=== PATIENT | female | born 1950 | race Caucasian/White ===

== ENCOUNTER 2016-11-13 07:24 | Day surgery (SDC) | payer MEDICARE, OTHER ==
[~2016-11-13] VITALS: Ht 167.6 cm; Wt 73.5 kg
[~2016-11-13 07:24] MED LIST: CELEBREX 100 M100 MG PO
[2016-11-13 08:00] LABS: HEMATOCRIT 42.5 % (36.0-48.0); HEMOGLOBIN 14.3 g/dL (12-16); MCH 30.8 pg (26.0-34.0); MCHC 33.6 g/dL (31.0-37.0); MCV 91.6 fL (80.0-100.0); MEAN PLATELET VOLUME 10.4 fL (7.4-10.4); RBC 4.64 10x6/uL (4.00-5.40); RDW 13.1 % (11.5-14.5); WBC 6.9 10x3/uL (4.8-10.8)
[2016-11-13 09:55] VITALS: BP 145/65; Ht 167.6 cm; Wt 73.5 kg
[2016-11-13] MEDS ORDERED: HYDROCODONE-APA1 TAB PO (12:26)
--- NOTE | 2016-11-13 19:57 | NUR ---
1700 DRESSED. AWAKE & ALERT SITTING UP IN CHAIR. GIVEN D/C INSTRUCTION PACKET INCLUDING: RX NORCO 10/325MG ,MED REC, NERVE BLOCK POST OP INSTRUCTIONS, POST OP INSTRUCTIONS FOR ARTHROSCOPY OF SHOULDER, PENDULUM EXERCISE INSTRUCTIONS, & RTC APPT. PT & VOICED UNDERSTANDING. PT & INFORMED PT NEEDS TO REMOVE SCOPOLAMINE PATCH IN 72HRS. TO PRIVATE CAR PER WHEELCHAIR BY THIS NURSE. HOME WITH MR. NEELY. Marycarmen OROZCO R.N.
--- NOTE | 2016-11-14 16:52 | OP ---
PATIENT NAME: CHANELLE NEELY MEDICAL RECORD: [id number] :49 LOCATION:D[facility] ADMISSION DATE: SURGEON: HUY VARGAS, CHASIDY MALONEY DATE OF OPERATION: 11/13/2016 PREOPERATIVE DIAGNOSES: Rotator cuff tear of the right shoulder with impingement syndrome, acromioclavicular arthritis. POSTOPERATIVE DIAGNOSES: Rotator cuff tear of the right shoulder with impingement syndrome, acromioclavicular arthritis. PROCEDURES: 1. Arthroscopic rotator cuff repair of the right shoulder. 2. Arthroscopic subacromial decompression, acromioplasty and bursectomy. 3. Arthroscopic distal clavicle excision done through separate incision -- 1 cm. SURGEON: Chasidy Son MD. ANESTHESIA: General. INTRAOPERATIVE COMPLICATIONS: None. SUMMARY OF PATHOLOGIC FINDINGS: Consistent with the preoperative diagnosis and MRI. The patient had full thickness rotator cuff tearing along with impingement syndrome and acromioclavicular arthritis. OPERATIVE SUMMARY IN DETAIL: After obtaining the appropriate preoperative orthopedic surgery consents as well as anesthetic consultation, evaluation and clearance, the patient was brought to the operating room and placed on the operating table in supine position. After adequate general laryngeal mask airway was administered, the patient was placed in a left lateral decubitus position. All pressure points were well padded to include down leg peroneal pad as well as axillary roll. She was held firmly to the operating table using the vacuum pack suction system. Right upper extremity and shoulder were then prepped and draped in a routine sterile fashion. The arm was held in the Arthrex traction boom at 30 degrees of forward flexion, 30 degrees of abduction with 10 pounds of traction laterally. Arthroscopy was established in the glenohumeral joint from a posterior portal. Anterior portal was established in the anterior safe interval. Diagnostic arthroscopy did reveal the above findings. Attention was turned to the rotator cuff. Transrotator cuff portal was created and debridement was carried out to remove all the undersurface torn fibers and decorticate a portion of the supraspinatus tendinous footprint. Attention was turned to the subacromial space. [place] tissue ablation system was utilized to denude the undersurface of the acromion of all soft tissue elements and released coracoacromial ligament. A 5-0 barrel jeff was then used to perform acromioplasty at the level of acromioclavicular joint. Through a separate arthroscopic anterior portal, distal clavicle was excised for 1 cm. Attention was then turned to the rotator cuff. A single inverted mattress suture with #2 FiberTape was placed through the rotator cuff and anchored laterally with a 5.5 SwiveLock resulting in good reapproximation of the rotator cuff tear. Having completed this, arthroscopy portals were closed in routine interrupted fashion using 4-0 Prolene. Sterile dressings were applied. The patient was awakened, taken to recovery room in stable condition. All final needle and sponge counts were correct. OPERATIVE REPORT [id number] CHANELLE NEELY TRANSINT:[id number] Voice Confirmation ID: [id number] DOCUMENT ID: [id number] HUY VARGAS, CHASIDY MALONEY at 1652 CC: [id number] DICTATION DATE: 11/13/16 1232 LOCATION WORKER: 11/13/162110 [facility] 11/13/16 [id number] [place] [address]
== END 2016-11-13 17:00 | disposition home or self-care (01) ==
LOC: D.OPS 07:24 → D.PAN 10:15 → D.OPS 11:45 → D.PAN 12:00 → D.OPS 17:00
PROVIDERS: Anesthesiology
DX: M75.121 Complete rotator cuff tear or rupture of right shoulder, not specified as traumatic (principal); M75.41 Impingement syndrome of right shoulder; M13.811 Other specified arthritis, right shoulder

== ENCOUNTER 2017-01-08 10:27 | Day surgery (SDC) | payer MEDICARE, OTHER ==
[~2017-01-08] VITALS: Ht 167.6 cm; Wt 72.6 kg
[~2017-01-08 10:27] MED LIST changes: +HYDROCODONE-APA1 TAB PO
[2017-01-08 11:15] LABS: HEMATOCRIT 40.7 % (36.0-48.0); HEMOGLOBIN 13.4 g/dL (12-16); MCH 30.7 pg (26.0-34.0); MCHC 32.9 g/dL (31.0-37.0); MCV 93.3 fL (80.0-100.0); MEAN PLATELET VOLUME 10.8 fL (7.4-10.4); RBC 4.36 10x6/uL (4.00-5.40); RDW 12.2 % (11.5-14.5); WBC 10.2 10x3/uL (4.8-10.8)
[2017-01-08] MEDS ORDERED: SOMA350 MG PO (11:17)
[2017-01-08] MEDS ORDERED: PERCOCET 7.5/321 TAB PO (11:18)
[2017-01-08] MEDS ORDERED: ATARAX 25 MG TA25 MG PO (11:19)
[2017-01-08 11:20] VITALS: BP 120/65; Ht 167.6 cm; Wt 72.6 kg
[2017-01-08] MEDS ORDERED: ZOFRAN ODT4 MG/UDTAB PO (11:20)
[2017-01-08] MEDS ORDERED: PERCOCET 10/3251 TA1 PO (15:29)
--- NOTE | 2017-01-08 16:40 | NUR ---
DISCHARGE INSTRUCTIONS REVIEWED WITH PATIENT AND SPOUSE, PATIENT DISCHARGED HOME VIA WHEELCHAIR TO PRIVATE VEHICLE WITH SPOUSE
--- NOTE | 2017-01-10 13:29 | OP ---
PATIENT NAME: CHANELLE NEELY MEDICAL RECORD: [id number] :48 LOCATION:D.OPS ADMISSION DATE: SURGEON: CHASIDY SON MD DATE OF OPERATION: 01/08/2017 Orthopedic Surgery Operative Note PREOPERATIVE DIAGNOSIS: Adhesive capsulitis of the right shoulder. POSTOPERATIVE DIAGNOSIS: Adhesive capsulitis of the right shoulder. PROCEDURE: Manipulation under TIVA anesthesia. SURGEON: Chasidy Son MD. ANESTHESIA: TIVA. COMPLICATIONS: None. SUMMARY OF PATHOLOGIC FINDINGS: The patient had very tight adhesive capsulitis that definitely needed manipulation. OPERATIVE SUMMARY IN DETAIL: After obtaining the appropriate preoperative orthopedic surgery consents as well as anesthetic consultation, evaluation and clearance, the patient was brought to the operating room and placed in the operating table in supine position. After adequate TIVA anesthesia was administered, the scapula was stabilized. Manipulation was first carried out in abduction followed by external rotation, internal rotation, flexion, extension and abduction and external rotation again. Good release was achieved. At this point, the patient was awakened and taken back to outpatient in stable condition. TRANSINT:[id number] Voice Confirmation ID: [id number] DOCUMENT ID: [id number] CHASIDY SON MD at 1329 CC: [id number] DICTATION DATE: 01/08/171942 FURNACE ROASTER: 01/09/17 0431 [facility] 01/08/17 [facility] [address] [place] [address]
== END 2017-01-08 16:40 | disposition home or self-care (01) ==
LOC: D.OPS 10:27 → D.PAN 13:00 → D.OPS 13:00
PROVIDERS: Anesthesiology
DX: M75.01 Adhesive capsulitis of right shoulder (principal); G47.30 Sleep apnea, unspecified; K21.9 Gastro-esophageal reflux disease without esophagitis; Z01.812 Encounter for preprocedural laboratory examination

== ENCOUNTER 2017-11-21 07:41 | Day surgery (SDC) | payer MEDICARE, OTHER ==
[~2017-11-21] VITALS: Ht 167.6 cm; Wt 73.0 kg
--- NOTE | ~2017-11-21 | OP ---
PATIENT NAME: CHANELLE NEELY MEDICAL RECORD: [id number] :48 LOCATION:D.OPS ADMISSION DATE: SURGEON: CHASIDY SON MD DATE OF OPERATION: 11/21/2017 PREOPERATIVE DIAGNOSES: 1. Recurrent rotator cuff tear of the right shoulder. 2. Foreign body in the right shoulder. 3. Biceps tendinitis of the right shoulder. POSTOPERATIVE DIAGNOSES: 1. Recurrent rotator cuff tear of the right shoulder. 2. Foreign body in the right shoulder. 3. Biceps tendinitis of the right shoulder. PROCEDURES: 1. Arthroscopic rotator cuff repair. 2. Arthroscopic tenodesis. 3. Arthroscopic removal of foreign body. SURGEON: Chasidy Son MD ANESTHESIA: General. INTRAOPERATIVE COMPLICATIONS: None. SUMMARY OF PATHOLOGIC FINDINGS: The previously placed suture anchor had worked its way out and was in the subacromial space as was the metal tip. These were removed. Unfortunately, the patient had a nonhealed rotator cuff tear, which was not attached to the supraspinatus footprint. The patient was also found to have worsening of her biceps tendinitis. OPERATIVE SUMMARY IN DETAIL: After obtaining the appropriate orthopedic surgery consent as well as anesthetic consultation, evaluation and clearance, the patient was brought to the operating room and placed on the operating table in the supine position. After adequate general laryngeal mask airway was administered, the patient was placed in a left lateral decubitus position. All pressure points were well padded to include down leg peroneal pad as well as axillary roll. The patient was held firmly to the operating table using the vacuum pack suction system. Right upper extremity and shoulder were then prepped and draped in routine sterile fashion. The arm was held in the Arthrex traction boom at 30 degrees of forward flexion, 30 degrees of abduction, 10 pounds of traction laterally. Arthroscopy was established in glenohumeral joint from a posterior portal. Anterior portal was established in the anterior safe interval. Diagnostic arthroscopy did reveal the patient to have biceps tendinitis as well as recurrent rotator cuff tear. Arthroscopy was established in the subacromial space. While in subacromial space, the previously placed SwiveLock was immediately identified and removed in its entirety as was the metal tip that was also found. Arthroscopy was then carried down to the rotator cuff torn fibers. The greater tuberosity was debrided to bleeding cortical cancellous bone. At this point, the biceps tendon was identified, captured with a FiberWire using multiple pass sutures. The tendon was then tenotomized. A 7-mm Arthrex Bio-Tenodesis screw was utilized to perform a tenodesis in the proximal 1/3 and lower 2/3 bicipital groove. This went without significant complication. At this point, the tails of Bio-Tenodesis screw was then used to OPERATIVE REPORT [id number] CHANELLE NEELY catch the anterior aspect of the supraspinatus tendon using the scorpion and this was then anchored laterally with a 5.5 SwiveLock. These tails were then utilized to catch the anchor a little bit farther posteriorly. This was then anchored with a 4.75 SwiveLock and lastly, the same technique was used for 1 more suture using another 4.75 SwiveLock. This resulted in excellent reapproximation of the rotator cuff. Having completed this, arthroscopy portals were closed in routine interrupted fashion using 4-0 Prolene. Sterile dressings were applied. The patient was awakened and taken to recovery in stable condition. All final needle and sponge counts were correct. TRANSINT:[id number] Voice Confirmation ID: [id number] DOCUMENT ID: [id number] HUY VARGAS, CHASIDY MALONEY at 1401 CC: [id number] DICTATION DATE: 11/21/17 1151 DIRECT MARKETING SPECIALIST: 11/21/17 1252 [facility] [address] [place] [address]
[~2017-11-21 07:41] MED LIST changes: +ATARAX 25 MG TA25 MG PO; +CALCIUM 500 + D1 TAB PO; +PERCOCET 10/3251 TA1 PO; +PERCOCET 7.5/321 TAB PO; +SOMA350 MG PO; +ZOFRAN ODT4 MG/UDTAB PO
[2017-11-21 08:19] LABS: HEMATOCRIT 43.2 % (36.0-48.0); HEMOGLOBIN 14.9 g/dL (12-16); MCH 30.7 pg (26.0-34.0); MCHC 34.5 g/dL (31.0-37.0); MCV 89.1 fL (80.0-100.0); MEAN PLATELET VOLUME 10.8 fL (7.4-10.4); RBC 4.85 10x6/uL (4.00-5.40); WBC 5.6 10x3/uL (4.8-10.8)
[2017-11-21 09:15] VITALS: BP 122/73; Ht 167.6 cm; Wt 73.0 kg
[2017-11-21] MEDS ORDERED: MEPERIDINE HCL50 MG PO (11:46)
== END 2017-11-21 13:30 | disposition home or self-care (01) ==
LOC: D.OPS 07:41 → D.PAN 15:00
PROVIDERS: Anesthesiology
DX: M75.101 Unspecified rotator cuff tear or rupture of right shoulder, not specified as traumatic (principal); M79.5 Residual foreign body in soft tissue; K21.9 Gastro-esophageal reflux disease without esophagitis; G47.30 Sleep apnea, unspecified; Z01.812 Encounter for preprocedural laboratory examination

== ENCOUNTER 2018-03-11 06:20 | Day surgery (SDC) | payer MEDICARE, OTHER ==
[~2018-03-11] VITALS: Ht 167.6 cm; Wt 72.6 kg
--- NOTE | ~2018-03-11 | OP ---
PATIENT NAME: CHANELLE NEELY MEDICAL RECORD: [id number] :48 LOCATION:D.OPS ADMISSION DATE: SURGEON: CHASIDY SON MD DATE OF OPERATION: 03/11/2018 PREOPERATIVE DIAGNOSES: 1. Medial meniscus tear of the left knee. 2. Intra-articular ganglion cyst, left knee. POSTOPERATIVE DIAGNOSES: 1. Medial meniscus tear of the left knee. 2. Intra-articular ganglion cyst, left knee. PROCEDURE: 1. Arthroscopic partial medial meniscectomy. 2. Arthroscopic removal of intra-articular ganglion cyst. SURGEON: Chasidy Son MD ANESTHESIA: General. INTRAOPERATIVE COMPLICATIONS: None. 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 Also, the patient had a large intra-articular ganglion cyst in the notch that was taken down as well. OPERATIVE SUMMARY IN DETAIL: After obtaining the appropriate preoperative orthopedic surgery consent as well as anesthetic consultation, evaluation and clearance, the patient was brought to the operating room and placed on the operating table in supine position. After general laryngeal mask airway was administered, tourniquet was placed at the proximal aspect of left lower extremity. Left lower extremity was then prepped and draped in routine sterile fashion. The leg was elevated and exsanguinated, tourniquet was inflated to 350 mmHg. Routine inferolateral portal was established followed by superomedial portal and inferomedial portal. Diagnostic arthroscopy did reveal the above findings. Attention was turned to the medial aspect and combination of arthroscopic resector as well as a meniscotome was utilized to debride the meniscus. The tear actually extended in a laminar fashion back to the root, but not including the root attachment. Having debrided this, the patient has nearly now medial subtotal meniscectomy. Attention was then turned to the intra-articular notch where the large ganglion was seen to reside on the MRI and indeed it did. It was actually emanating from the portion of the anterior cruciate ligament. The ganglion cyst was gently taken down without disrupting the ganglion cyst. The lateral compartment was pristine without any evidence of lateral meniscus tear. Having completed this, the knee was insufflated with 30 cc of 0.25% Marcaine with epinephrine, 80 mg Depo-Medrol. Arthroscopy portals were closed in routine interrupted fashion using 4-0 Prolene. Sterile dressings were applied. The patient was awakened and taken to recovery room in stable condition. All final needle and sponge counts were correct. TRANSINT:[id number] Voice Confirmation ID: [id number] DOCUMENT ID: [id number] OPERATIVE REPORT [id number] CHANELLE NEELY MD, CHASIDY MALONEY at 1547 CC: [id number] DICTATION DATE: 03/11/18 1156 DOUGHNUT DOUGH MIXER: 03/11/18 1308 [facility] [place] 03/11/18 [id number] [place] [address]
[~2018-03-11 06:20] MED LIST changes: +MEPERIDINE HCL50 MG PO
[2018-03-11 06:39] LABS: HEMATOCRIT 43.3 % (36.0-48.0); HEMOGLOBIN 14.3 g/dL (12-16); MCH 30.4 pg (26.0-34.0); MCV 91.9 fL (80.0-100.0); MEAN PLATELET VOLUME 10.9 fL (7.4-10.4); RBC 4.71 10x6/uL (4.00-5.40); RDW 13.6 % (11.5-14.5); WBC 5.1 10x3/uL (4.8-10.8)
[2018-03-11 07:51] VITALS: BP 132/76; Ht 167.6 cm; Wt 72.6 kg
[2018-03-11] MEDS ORDERED: HYDROCODONE-APA1 TAB PO (10:12)
== END 2018-03-11 11:59 | disposition home or self-care (01) ==
LOC: D.OPS 06:20 → D.PAN 09:15 → D.OPS 11:59
PROVIDERS: Anesthesiology
DX: S83.242A Other tear of medial meniscus, current injury, left knee, initial encounter (principal); M67.462 Ganglion, left knee; M94.262 Chondromalacia, left knee; Z01.812 Encounter for preprocedural laboratory examination